=== PATIENT | male | born 2000 | race African-American/Black ===

== ENCOUNTER 2021-01-20 10:15 | Emergency (ER) | payer MEDICAID, OTHER ==
[~2021-01-20] VITALS: Ht 172.7 cm; Wt 100.0 kg
[2021-01-20 10:22] VITALS: BP 135/78
[2021-01-20] MEDS ORDERED: PREDNISONE 20MG TABLET PO ONE (11:15)
[2021-01-20] MEDS ORDERED: P50 MT (11:17)
[2021-01-20] MEDS ORDERED: DEXT15LI5 MT (11:20)
== END 2021-01-20 11:38 | disposition home or self-care (01) ==
LOC: ER 10:15
DX: J45.901 Unspecified asthma with (acute) exacerbation (principal); Z98.890 Other specified postprocedural states
CPT/HCPCS: 71045; 99283; J7512